=== PATIENT | female | born 1995 | race African-American/Black ===

== ENCOUNTER 2021-01-23 08:34 | Emergency (ER) | payer BC, OTHER ==
[2021-01-23 08:48] VITALS: BMI 23.3
[2021-01-23 09:38] LABS: EPI CELLS >36 /uL (0-25.1); HCG,QUALITATIVE URINE Negative; HYALINE CASTS 65 /uL (0-3.1); PH,URINE 6.5 (5.0-8.0); URINE APPEARANCE CLOUDY; URINE BACTERIA 442 /uL (0-1359); URINE BILIRUBIN 1+ (NEGATIVE); URINE COLOR DK YELLOW; URINE GLUCOSE (UA) NEGATIVE (NEGATIVE); URINE KETONE 1+ (NEGATIVE); URINE LEUK ESTERASE TRACE (NEGATIVE); URINE NITRITE NEGATIVE (NEGATIVE); URINE PROTEIN 3+ (NEGATIVE); URINE RBC 38 /uL (0-23.9); URINE WBC 29 /uL (0-25.8)
[2021-01-23 12:24] VITALS: BP 110/65; TEMP 98.5
[2021-01-23 12:26] VITALS: PULSE 85
== END 2021-01-23 12:00 | disposition home or self-care (01) ==
LOC: JER 08:34
DX: R42 Dizziness and giddiness (principal)
CPT/HCPCS: 81003; 84703; 87086; 99283-25; C9803; U0003; U0005